=== PATIENT | female | born 1995 | race African-American/Black ===

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

== ENCOUNTER → 2017-02-06 | Outpatient (CLI) | payer MEDICAID ==
[~2017-02-06] MED LIST changes: +AMOX500C PO; +AZIT500T2 PO; +IBUP800T23 PO; -MMW SWISH-SWAL; -NAPR250T57 PO; +PERI0.126 SWISH-SPIT; +PYRI25TA2 PO; +SE-NTAB3 PO
== END ==
LOC: HPND 09:11
PROVIDERS: ATTEND Family Medicine
DX: Z34.90 Encounter for supervision of normal pregnancy, unspecified, unspecified trimester (principal)
CPT/HCPCS: 76805

== ENCOUNTER 2017-03-07 14:47 | Emergency (ER) | payer MEDICAID ==
[~2017-03-07] VITALS: Ht 160 cm; Wt 70.6 kg
[~2017-03-07 14:47] MED LIST changes: -AMOX500C PO; -AZIT500T2 PO; -IBUP800T23 PO; -PERI0.126 SWISH-SPIT
[2017-03-07 14:49] VITALS: BP 129/70; PULSE 104; RESP 20; TEMP 98.9; O2SAT 98
[2017-03-07] MEDS ORDERED: PERI0.126 SWISH-SPIT (16:24)
[2017-03-07] MEDS ORDERED: IBUP800T23 PO (16:24)
[2017-03-07] MEDS ORDERED: AMOX500C PO (16:24)
--- NOTE | 2017-03-07 16:25 | PD ---
HPI Chief Complaint: Oral / Dental Pain or Problem Time Seen by Provider: 16:23 Travel History International Travel<30 days: No Contact w/Intl Traveler<30days: No Traveled to known affect area: No History of Present Illness HPI 21-year-old female, 5 months , with complaint of bilateral lower teeth pain times one week. She said her fillings fell out a long time ago and she started having pain a week ago. Denies fevers. Reports vomiting every morning secondary to . Is complaining of lower abdominal pain that she describes as sharp and shooting pain. Denies vaginal bleeding, leakage, discharge. Geriatrics Physician is Dr. Cabrales. Says she took Tylenol and ibuprofen for symptom management. Symptoms are moderate in severity. No known relieving factors. Allergies Tatarian pineapple. Has no other medical complaints. No other modifying factors or associated signs and symptoms. PFSH Past Medical History Developmental Delay: No Diminished Hearing: No Immunizations Current: Yes ?: LMP: 10/01/16 Social History Alcohol Use: No Tobacco Use: No Substance Use: No Allergies-Medications (Allergen,Severity, Reaction): Coded Allergies: castillo (Unverified Allergy, Severe, ORAL SWELLING, 01/06/17) pineapple (Unverified Allergy, Severe, 01/06/17) Reported Meds & Prescriptions Reported Meds & Active Scripts Active Peridex Liq (Chlorhexidine Gluconate (Mouth) Liq) 0.12% Soln 15 Ml SWISH-SPIT BID 10 Days Amoxicillin 500 Mg Cap 500 Mg PO BID 10 Days Se- 19 29-1 mg ( Vit W/ Docusate-Fe Fu) 1 Tab Tab 1 Tab PO DAILY Review of Systems Except as stated in HPI: all other systems reviewed are Neg Physical Exam Narrative GENERAL: Well-nourished, well-developed black female patient, in no acute distress; afebrile, nontoxic-appearing SKIN: Warm and dry. HEAD: Atraumatic. Normocephalic. No facial edema, erythema, tenderness on palpation. No lymphadenopathy. EYES: Pupils equal and round. No scleral icterus. No injection or drainage. ENT: Mucosa pink and moist. Airway patent. MOUTH: Mucous membranes moist, no lesions, tongue and gums appear normal. Tooth #30, 31, 18 with tenderness on palpation; dental caries noted. Surrounding gingiva is without erythema, edema, drainage. No obvious abscess noted. NECK: Trachea midline. No lymphadenopathy. CARDIOVASCULAR: Regular rate. RESPIRATORY: No accessory muscle use. GASTROINTESTINAL: . MUSCULOSKELETAL: No obvious deformities. No clubbing. No cyanosis. No edema. NEUROLOGICAL: Awake and alert. Oriented 3. No obvious cranial nerve deficits. Motor grossly within normal limits. Normal speech. PSYCHIATRIC: Appropriate mood and affect; insight and judgment normal. Data Data Last Documented VS Vital Signs Date Time Temp Pulse Resp B/P (MAP) Pulse Ox O2 Delivery O2 Flow Rate FiO2 03/07/17 14:49 98.9 104 20 129/70 (89) 98 Orders Orders Ed Discharge Order (03/07/17 16:30) Acetaminophen (Tylenol) (03/07/17 16:45) Oxycodone-Acetamin 5-325 Mg (Percocet (03/07/17 18:00) MDM Medical Decision Making Medical Screen Exam Complete: Yes Emergency Medical Condition: Yes Medical Record Reviewed: Yes Differential Diagnosis Dentalgia, dental abscess, gingivitis, infected dental caries Narrative Course This is a 21-year-old female with dentalgia. No facial edema or erythema. Patient is afebrile and nontoxic-appearing. The patient is approximately 5 months and is complaining of lower abdominal pains and describes them as sharp and shooting. She denies vaginal bleeding, discharge, leakage. The patient was medically cleared and was given prescriptions for amoxicillin and Peridex mouth rinse. She was given an emergency dental information sheet. Instructed patient to follow up with dentist. Patient given Tylenol prior to discharge. Instructed patient to take Tylenol as directed and as needed for pain. The patient was discharged and taken to labor and delivery ER on the second floor of the [facility] for evaluation of abdominal pain. Diagnosis Primary Impression: Dentalgia Referrals: Dentist Primary Care Physician Patient Instructions: Dental Abscess (ED), Dental Caries (ED), General Instructions, Toothache (ED) Additional Instructions: Complete full course of antibiotics Ibuprofen or Tylenol as directed and as needed to reduce pain and inflammation Use Peridex as directed for oral hygiene Warm or cool compresses to the affected area Follow-up with dentist Follow-up with primary care provider Return to emergency department immediately with worsening of symptoms Med/Other Pt SpecificInfo: Prescription(s) given Scripts Chlorhexidine Gluconate (Mouth) Liq (Peridex Liq) 0.12% Soln 15 ML SWISH-SPIT BID for 10 Days, #300 ML 0 Refills Prov: Татьяна Moss 03/07/17 Amoxicillin (Amoxicillin) 500 Mg Cap 500 MG PO BID for Infection for 10 Days, #20 CAP 0 Refills Prov: Татьяна Moss 03/07/17 Disposition: 01 DISCHARGE HOME Condition: Stable Татьяна Moss Mar 07, 2017 16:25
[2017-03-07] MEDS ORDERED: ACETAMINOPHEN 325 MG TAB PO ONE (16:45)
[2017-03-07] MEDS ORDERED: oxyCODONE/ACETAMINOPHEN 5 MG/325 MG TAB PO ONE (18:00)
--- NOTE | 2017-03-07 18:08 | PD ---
HPI Chief Complaint 18 weeks and 2 days ; Low abdominal pain Travel History International Travel<30 Days: No Contact w/Intl Traveler<30Days: No Known Affected Area: No History of Present Illness HPI Pt is a 21 yo at 18 weeks and 2 days who presents with c/o low abdominal pain. Pt has EDC 07-09-2017, and receives care with [facility]. Pt was seen in the ER here with her c/o dental pain. Pt diagnosed with dental abscess and was being sent home on PO Tyelnol and Amoxicillin. Pt said she strained while using the bathroom prior to leaving, and noted sudden onset bilateral groin pain. Active movements, no vaginal bleeding or discharge. Weeks Gestation: 18 Para: 0 : 1 History Past Medical History Narrative Medical Dental abscess Obstetric History Obstetric History Primigravida Past Surgical History Surgical History: No Previous Surgery Family History Family History: Negative Social History Alcohol Use: No Tobacco Use: No Substance Abuse: No Allergies-Medications (Allergen,Severity, Reaction): Coded Allergies: castillo (Unverified Allergy, Severe, ORAL SWELLING, 01/06/17) pineapple (Unverified Allergy, Severe, 01/06/17) Home Meds Active Scripts Chlorhexidine Gluconate (Mouth) Liq (Peridex Liq) 0.12% Soln, 15 ML SWISH-SPIT BID for 10 Days, #300 ML 0 Refills Prov:Татьяна Moss MARKER DELIVERY 03/07/17 Amoxicillin (Amoxicillin) 500 Mg Cap, 500 MG PO BID for Infection for 10 Days, # 20 CAP 0 Refills Prov:Татьяна Moss MARKER DELIVERY 03/07/17 Vit W/ Docusate-Fe Fu (Se-Teresa 19 29-1 mg) 1 Tab Tab, 1 TAB PO DAILY for Nutritional Supplement, #30 TAB 10 Refills Prov:Adrian Cabrales MD R3 01/05/17 Discontinued Scripts Pyridoxine (Pyridoxine) 25 Mg Tab, 25 MG PO Q8HR for Nutritional Supplement, # 90 TAB 0 Refills Prov:Adrian Cabrales MD R3 01/05/17 Review of Systems Except as stated in HPI: all other systems reviewed are Neg Physical Exam Vital Signs Date Time Temp Pulse Resp B/P (MAP) Pulse Ox O2 Delivery O2 Flow Rate FiO2 03/07/17 14:49 98.9 104 20 129/70 (78) 98 Narrative GENERAL: Well-nourished, well-developed patient. SKIN: Warm and dry. HEAD: Normocephalic and atraumatic. EYES: No scleral icterus. No injection or drainage. ENT: No nasal drainage noted. Mucous membranes pink. Airway patent. NECK: Supple, trachea midline. No JVD. CARDIOVASCULAR: Regular rate and rhythm without murmurs, gallops, or rubs. RESPIRATORY: Breath sounds equal bilaterally. No accessory muscle use. BREASTS: Bilateral exam showed no masses , no retractions, no nipple discharge. ABDOMEN/GI: Abdomen soft, non-tender, bowel sounds present, no rebound, no guarding SOFT, tender bilateral groin Gravid to [20] weeks size GENITOURINARY: External Genitalia: intact and normal in appearance Cervix: [firm] Dilatation: [closed] Effacement: [not effaced] Station: [-] Presentation: [-] Membranes: [intac] Uterine Contractions: [none] FHT's: Category: [130s] Baseline: [] Reactive: [-] Variability: [-] Decels: [-] EXTREMITIES: No cyanosis or edema. BACK: Nontender without obvious deformity. No CVA tenderness. NEUROLOGICAL: Awake and alert. Motor and sensory grossly within normal limits. Five out of 5 muscle strength in all muscle groups. Normal speech. Data Data Vital Signs Reviewed: Yes Orders Orders Ed Discharge Order (03/07/17 16:30) Acetaminophen (Tylenol) (03/07/17 16:45) MDM Plan 21 yo with sudden onset bilateral groin pain. Abdomen soft, cervix closed, FHRs in 130s. Round ligament pain. Advised alternate warm/cold compress and PO Tyelnol as needed. Will give one dose Percocet 5/325 ii PO x 1 prior to discharge. Diagnosis Diagnosis: Primary Impression: Dentalgia Additional Impressions: 19 weeks gestation of Pain of round ligament affecting , antepartum Disposition: 01 DISCHARGE HOME Condition: Fair Scripts Chlorhexidine Gluconate (Mouth) Liq (Peridex Liq) 0.12% Soln 15 ML SWISH-SPIT BID for 10 Days, #300 ML 0 Refills Prov: Татьяна Moss MARKER DELIVERY 03/07/17 Amoxicillin (Amoxicillin) 500 Mg Cap 500 MG PO BID for Infection for 10 Days, #20 CAP 0 Refills Prov: Татьяна Moss MARKER DELIVERY 03/07/17 Referrals: Dentist Primary Care Physician Patient Instructions: General Instructions, Dental Abscess (ED), Dental Caries (ED), Toothache (ED) Additional Instructions: Complete full course of antibiotics Ibuprofen or Tylenol as directed and as needed to reduce pain and inflammation Use Peridex as directed for oral hygiene Warm or cool compresses to the affected area Follow-up with dentist Follow-up with primary care provider Return to emergency department immediately with worsening of symptoms Departure Forms: Tests/Procedures Charles Griffin MD Mar 07, 2017 18:08
== END 2017-03-07 18:13 | disposition home or self-care (01) ==
LOC: NEPK 14:47 → HOBED 18:13
DX: O26.92 Pregnancy related conditions, unspecified, second trimester (principal); K04.7 Periapical abscess without sinus; Z3A.00 Weeks of gestation of pregnancy not specified
CPT/HCPCS: 99284

== ENCOUNTER 2017-03-16 06:20 | Emergency (ER) | payer MEDICAID ==
[~2017-03-16 06:20] MED LIST changes: +AMOX500C PO; +PERI0.126 SWISH-SPIT; -PYRI25TA2 PO
[2017-03-16 07:00] VITALS: PULSE 94
--- NOTE | 2017-03-16 07:17 | PD ---
HPI Travel History International Travel<30 Days: No Contact w/Intl Traveler<30Days: No Known Affected Area: No History of Present Illness HPI 21 yr old G1PO at 23/4 weeks presents by EVAC for abdominal pain. Reports that it started at 4am this morning. Describes it as constant, stabbing, diffuse abdominal pain. Worse with positional movement. Endorses urinary frequency. She denies dysuria, fever, N/V, CP, SOB, vaginal discharge, vaginal bleeding, leakage of fluid, and contractions. Last intercourse was a day ago. She has been receiving care at [facility] with Dr. Adrian Cabrales. She reports not showing up to her last couple of visits due to being out of town for a family issue. History Past Medical History Medical History: Denies Significant Hx Past Surgical History Surgical History: No Previous Surgery Family History Family History: Negative Social History Alcohol Use: No Tobacco Use: No Substance Abuse: No Allergies-Medications (Allergen,Severity, Reaction): Coded Allergies: casitllo (Unverified Allergy, Severe, ORAL SWELLING, 01/06/17) pineapple (Unverified Allergy, Severe, 01/06/17) Home Meds Active Scripts Azithromycin (Azithromycin) 500 Mg Tab, 2000 MG PO ONCE for Infection, #4 TAB 0 Refills Prov:Martina Kelsey MD R1 03/16/17 Chlorhexidine Gluconate (Mouth) Liq (Peridex Liq) 0.12% Soln, 15 ML SWISH-SPIT BID for 10 Days, #300 ML 0 Refills Prov:Татьяна Moss DIRECTOR OF UNDERGRADUATE ADMISSIONS 03/07/17 Amoxicillin (Amoxicillin) 500 Mg Cap, 500 MG PO BID for Infection for 10 Days, # 20 CAP 0 Refills Prov:Татьяна MossP 03/07/17 Vit W/ Docusate-Fe Fu (Se- 19 29-1 mg) 1 Tab Tab, 1 TAB PO DAILY for Nutritional Supplement, #30 TAB 10 Refills Prov:Adrian Cabrales MD R3 01/05/17 Review of Systems Except as stated in HPI: all other systems reviewed are Neg Physical Exam Narrative GENERAL: Well-nourished, well-developed patient. SKIN: Warm and dry. HEAD: Normocephalic and atraumatic. EYES: No scleral icterus. No injection or drainage. ENT: No nasal drainage noted. Mucous membranes pink. Airway patent. NECK: Supple, trachea midline. No JVD. CARDIOVASCULAR: Regular rate and rhythm without murmurs, gallops, or rubs. RESPIRATORY: Breath sounds equal bilaterally. No accessory muscle use. ABDOMEN/GI: Abdomen soft, diffuse tenderness, bowel sounds present, no rebound, no guarding SPECULUM EXAM: closed, normal cervix visualized, thin, mild amount of vaginal discharge FHT's: baseline 150s EXTREMITIES: No cyanosis or edema. BACK: Nontender without obvious deformity. No CVA tenderness. NEUROLOGICAL: Awake and alert. Motor and sensory grossly within normal limits. Data Data Vital Signs Reviewed: Yes Orders Orders Vital Signs (Adult) .ON ADMISSION (03/16/17 06:53) ^ Labor Status (03/16/17 06:53) ^ Hydration (03/16/17 06:53) Heart Tones (03/16/17 06:53) Gc And Chlamydia Pcr (03/16/17 07:16) MDM Narrative Course / MDM 21yr old G1PO at 23/4 weeks presents with round ligament pain and chlamydia positive -UA negative for Leukocyte esterase -GC & chlamydia PCR- positive for chlamydia, will contact patient and call in prescription for 2g Azithromycin one time dose -Tylenol and heating pad for pain -Hydrate with plenty of fluids -FHTs: 150s baseline, reassuring -F/U with CHELSEA for chlamydia and continue care with Dr. Adrian munoz s/d/w Dr. Durbin Diagnosis Diagnosis: Primary Impression: Pain of round ligament during Additional Impression: Chlamydia infection affecting Disposition: 01 DISCHARGE HOME Condition: Good Scripts Azithromycin (Azithromycin) 500 Mg Tab 2000 MG PO ONCE for Infection, #4 TAB 0 Refills Prov: Martina Kelsey MD R1 03/16/17 Patient Instructions: Abdominal Pain in (ED) Martina Kelsey MD R1 Mar 16, 2017 07:17
--- NOTE | 2017-03-16 07:17 | PD ---
HPI Travel History International Travel<30 Days: No Contact w/Intl Traveler<30Days: No Known Affected Area: No History of Present Illness HPI 21 yr old G1PO at 23/4 weeks presents by EVAC for abdominal pain. Reports that it started at 4am this morning. Describes it as constant, stabbing, diffuse abdominal pain. Worse with positional movement. Endorses urinary frequency. She denies dysuria, fever, N/V, CP, SOB, vaginal discharge, vaginal bleeding, leakage of fluid, and contractions. Last intercourse was a day ago. She has been receiving care at [facility] with Dr. Adrian Cabrales. She reports not showing up to her last couple of visits due to being out of town for a family issue. History Past Medical History Medical History: Denies Significant Hx Past Surgical History Surgical History: No Previous Surgery Family History Family History: Negative Social History Alcohol Use: No Tobacco Use: No Substance Abuse: No Allergies-Medications (Allergen,Severity, Reaction): Coded Allergies: castillo (Unverified Allergy, Severe, ORAL SWELLING, 01/06/17) pineapple (Unverified Allergy, Severe, 01/06/17) Home Meds Active Scripts Azithromycin (Azithromycin) 500 Mg Tab, 2000 MG PO ONCE for Infection, #4 TAB 0 Refills Prov:Martina Kelsey MD R1 03/16/17 Chlorhexidine Gluconate (Mouth) Liq (Peridex Liq) 0.12% Soln, 15 ML SWISH-SPIT BID for 10 Days, #300 ML 0 Refills Prov:Татьяна Moss [employer] TANK OPERATOR 03/07/17 Amoxicillin (Amoxicillin) 500 Mg Cap, 500 MG PO BID for Infection for 10 Days, # 20 CAP 0 Refills Prov:Татьяна MossP 03/07/17 Vit W/ Docusate-Fe Fu (Se- 19 29-1 mg) 1 Tab Tab, 1 TAB PO DAILY for Nutritional Supplement, #30 TAB 10 Refills Prov:Adrian Cabrales MD R3 01/05/17 Review of Systems Except as stated in HPI: all other systems reviewed are Neg Physical Exam Narrative GENERAL: Well-nourished, well-developed patient. SKIN: Warm and dry. HEAD: Normocephalic and atraumatic. EYES: No scleral icterus. No injection or drainage. ENT: No nasal drainage noted. Mucous membranes pink. Airway patent. NECK: Supple, trachea midline. No JVD. CARDIOVASCULAR: Regular rate and rhythm without murmurs, gallops, or rubs. RESPIRATORY: Breath sounds equal bilaterally. No accessory muscle use. ABDOMEN/GI: Abdomen soft, diffuse tenderness, bowel sounds present, no rebound, no guarding SPECULUM EXAM: closed, normal cervix visualized, thin, mild amount of vaginal discharge FHT's: baseline 150s EXTREMITIES: No cyanosis or edema. BACK: Nontender without obvious deformity. No CVA tenderness. NEUROLOGICAL: Awake and alert. Motor and sensory grossly within normal limits. Data Data Vital Signs Reviewed: Yes Orders Orders Vital Signs (Adult) .ON ADMISSION (03/16/17 06:53) ^ Labor Status (03/16/17 06:53) ^ Hydration (03/16/17 06:53) Heart Tones (03/16/17 06:53) Gc And Chlamydia Pcr (03/16/17 07:16) MDM Narrative Course / MDM 21yr old G1PO at 23/4 weeks presents with round ligament pain and chlamydia positive -UA negative for Leukocyte esterase -GC & chlamydia PCR- positive for chlamydia, will contact patient and call in prescription for 2g Azithromycin one time dose -Tylenol and heating pad for pain -Hydrate with plenty of fluids -FHTs: 150s baseline, reassuring -F/U with CHELSEA for chlamydia and continue care with Dr. Adrian munoz s/d/w Dr. Durbin Diagnosis Diagnosis: Primary Impression: Pain of round ligament during Additional Impression: Chlamydia infection affecting Disposition: 01 DISCHARGE HOME Condition: Good Scripts Azithromycin (Azithromycin) 500 Mg Tab 2000 MG PO ONCE for Infection, #4 TAB 0 Refills Prov: Martina Kelsey MD R1 03/16/17 Patient Instructions: Abdominal Pain in (ED) Martina Kelsey MD R1 Mar 16, 2017 07:17
[2017-03-16] MEDS ORDERED: AZIT500T2 PO (10:40)
--- NOTE | 2017-03-17 12:14 | HHI.PR ---
Addendum to Inpatient Note Addendum Reason: Additional Documentation Additional Information Made multiple attempts with the number provided to contact patient about positive result for Chlamydia and treatment. Could not get in contact with the patient. She does not currently have a cell phone and is using a friend's number. I talked to the family friend and told her that "a prescription is waiting for her at her preferred pharmacy." Friend agreed to get the message to her. Martina Kelsey MD R1 Mar 17, 2017 12:14
[2017-03-30] MEDS ORDERED: INFL1INJ56 IM (16:50)
== END 2017-03-16 09:12 | disposition home or self-care (01) ==
LOC: HOBED 06:20
DX: O98.312 Other infections with a predominantly sexual mode of transmission complicating pregnancy, second trimester (principal); A56.8 Sexually transmitted chlamydial infection of other sites; Z3A.23 23 weeks gestation of pregnancy
CPT/HCPCS: 87491; 87591; 99283

== ENCOUNTER 2017-07-04 13:21 | Inpatient (IN) | payer MEDICAID ==
[2017-07-04] VITALS (64 sets, daily range): BP systolic 114–144; BP diastolic 69–98; PULSE 63–111; RESP 15–20; TEMP 98.1–99; O2SAT 95–100
[~2017-07-04] VITALS: Ht 160 cm; Wt 68.0 kg
[~2017-07-04 13:21] MED LIST changes: -AMOX500C PO; +FERR325T18 PO; -PERI0.126 SWISH-SPIT
--- NOTE | 2017-07-04 14:29 | PD ---
HPI Date Seen: Jul 04, 2017 Time Seen: 13:45 Travel History International Travel<30 Days: No Contact w/Intl Traveler<30Days: No Known Affected Area: No History of Present Illness HPI Patient is a 21-year-old G1 presenting to the ED at 39/3 weeks gestation with an LUANNE of 07/08 based on second trimester ultrasound due to abdominal pain. She reports that she began to experience abdominal pain at 7 PM yesterday. The pain was intermittent. She reports that this morning abdominal pain woke her up and has been constant. Pain is located in her lower back and all over her abdomen. She endorses movement as well as leakage of fluid. She denies any recent vaginal bleeding. Weeks Gestation: 39 Para: 0 : 1 Miscarriage: 0 : 0 History Past Medical History Medical History: Denies Significant Hx Obstetric History Obstetric History G1, pt tested positive for chlamydia, test of cure ordered on 05/20 not completed. Past Surgical History Surgical History: No Previous Surgery Family History Family History: Negative Social History Alcohol Use: No Tobacco Use: No Substance Abuse: Yes Allergies-Medications (Allergen,Severity, Reaction): Coded Allergies: castillo (Unverified Allergy, Severe, ORAL SWELLING, 03/30/17) pineapple (Unverified Allergy, Severe, 03/30/17) Home Meds Active Scripts Ferrous Sulfate (Ferrous Sulfate) 325 Mg (65 Mg Iron) Tablet, 325 MG PO TIDPC for Nutritional Supplement, #90 TAB 5 Refills Prov:Adrian Cabrales MD R3 05/20/17 Vit W/ Docusate-Fe Fu (Se-Teresa 19 29-1 mg) 1 Tab Tab, 1 TAB PO DAILY for Nutritional Supplement, #30 TAB 10 Refills Prov:Adrian Cabrales MD R3 01/05/17 Review of Systems Eyes: No: Visual changes HENT: No: Headaches Cardiovascular: Edema (of bilateral feet), No: Chest Pain or Discomfort Respiratory: No: Short of Breath Gastrointestinal: Abdominal Pain Physical Exam Narrative GENERAL: Well-nourished, well-developed patient. SKIN: Warm and dry. HEAD: Normocephalic and atraumatic. EYES: No scleral icterus. No injection or drainage. ENT: No nasal drainage noted. Mucous membranes pink. Airway patent. NECK: Supple, trachea midline. No JVD. CARDIOVASCULAR: Regular rate and rhythm without murmurs, gallops, or rubs. RESPIRATORY: Breath sounds equal bilaterally. No accessory muscle use. ABDOMEN/GI: Abdomen soft, non-tender, bowel sounds present, no rebound, no guarding Gravid to 39 weeks size GENITOURINARY: External Genitalia: intact and normal in appearance Cervix: soft Dilatation: 3cm Effacement: 60% Station: -1 Presentation: Vertex Membranes: Intact Uterine Contractions: Irregular, Q1-3 minutes FHT's: Category: 1 Baseline: 150 Reactive: + Variability: moderate Decels: Absent EXTREMITIES: No cyanosis or edema. BACK: Nontender without obvious deformity. No CVA tenderness. NEUROLOGICAL: Awake and alert. Motor and sensory grossly within normal limits. Five out of 5 muscle strength in all muscle groups. Normal speech. [facility] Medical Record Reviewed: Yes Interpretation(s) Patient is a 21-year-old G1 presenting to the ED at 39/3 weeks gestation with an LUANNE of 07/08 based on second trimester ultrasound due to abdominal pain, tere every 1-3 minutes. 1) IUP Category 1 tracing, reassuring Cervix dilated to 3cm on initial exam, bulging bag noted on repeat exam Pt to be admitted for expectant management Anticipate 2) Lack of regular OB follow up Will check GBS, pending 3) Chlamydia during , CHELSEA not completed Will test for GC and Chlamydia 4) Abnormal US Multiple echogenic foci noted on prior US, no other indications of chromosomal abnormalities noted GAILW Adrian Santillan MD R3 Jul 04, 2017 14:29
[2017-07-04] MEDS ORDERED: LACTATED RINGER'S 1000 ML INJ 1,000 ML IV PRN (14:50)
[2017-07-04] MEDS ORDERED: LIDOCAINE HCL 1% 50 ML VIAL INFIL PRN (15:00)
[2017-07-04] MEDS ORDERED: LIDOCAINE HCL 1% 50 ML VIAL I-DERMAL PRN (15:00)
[2017-07-04] MEDS ORDERED: ONDANSETRON HCL 4 MG/2 ML VIAL IV PUSH PRN (15:00)
[2017-07-04] MEDS ORDERED: SODIUM CHLORID 0.9% 500 ML INJ 500 ML IV PRN (15:00)
[2017-07-04] MEDS ORDERED: CITRIC ACID-SODIUM CITRATE LIQ 30 ML UDC PO SCH (15:00)
[2017-07-04] MEDS ORDERED: MINERAL OIL 10 ML VIAL TOPICAL PRN (15:00)
[2017-07-04] MEDS ORDERED: OXYTOCIN 30 UNITS-500ML PREMIX 500 ML IV ONE (15:00)
--- NOTE | 2017-07-04 15:01 | HHI.HP ---
History & Physical H&P Date Seen: Jul 04, 2017 Time Seen: 13:45 Travel History International Travel<30 Days: No Contact w/Intl Traveler<30Days: No Known Affected Area: No History of Present Illness HPI Patient is a 21-year-old G1 presenting to the ED at 39/3 weeks gestation with an LUANNE of 07/08 based on second trimester ultrasound due to abdominal pain. She reports that she began to experience abdominal pain at 7 PM yesterday. The pain was intermittent. She reports that this morning abdominal pain woke her up and has been constant. Pain is located in her lower back and all over her abdomen. She endorses movement as well as leakage of fluid. She denies any recent vaginal bleeding. Weeks Gestation: 39 Para: 0 : 1 Miscarriage: 0 : 0 History (Limited) History Past Medical History Medical History: Denies Significant Hx Obstetric History Obstetric History G1, pt tested positive for chlamydia, test of cure ordered on 05/20 not completed. Past Surgical History Surgical History: No Previous Surgery Family History Family History: Negative Social History Alcohol Use: No Tobacco Use: No Substance Abuse: Yes Allergies-Medications Allergies-Medications (Allergen,Severity, Reaction): Coded Allergies: castillo (Unverified Allergy, Severe, ORAL SWELLING, 03/30/17) pineapple (Unverified Allergy, Severe, 03/30/17) Home Meds Active Scripts Ferrous Sulfate (Ferrous Sulfate) 325 Mg (65 Mg Iron) Tablet, 325 MG PO TIDPC for Nutritional Supplement, #90 TAB 5 Refills Prov:Adrian Cabrales MD R3 05/20/17 Vit W/ Docusate-Fe Fu (Se-Teresa 19 29-1 mg) 1 Tab Tab, 1 TAB PO DAILY for Nutritional Supplement, #30 TAB 10 Refills Prov:Adrian Cabrales MD R3 01/05/17 ROS Review of Systems Eyes: No: Visual changes HENT: No: Headaches Cardiovascular: Edema (of bilateral feet), No: Chest Pain or Discomfort Respiratory: No: Short of Breath Gastrointestinal: Abdominal Pain Physical Exam Physical Exam Narrative GENERAL: Well-nourished, well-developed patient. SKIN: Warm and dry. HEAD: Normocephalic and atraumatic. EYES: No scleral icterus. No injection or drainage. ENT: No nasal drainage noted. Mucous membranes pink. Airway patent. NECK: Supple, trachea midline. No JVD. CARDIOVASCULAR: Regular rate and rhythm without murmurs, gallops, or rubs. RESPIRATORY: Breath sounds equal bilaterally. No accessory muscle use. ABDOMEN/GI: Abdomen soft, non-tender, bowel sounds present, no rebound, no guarding Gravid to 39 weeks size GENITOURINARY: External Genitalia: intact and normal in appearance Cervix: soft Dilatation: 3cm Effacement: 60% Station: -1 Presentation: Vertex Membranes: Intact Uterine Contractions: Irregular, Q1-3 minutes FHT's: Category: 1 Baseline: 150 Reactive: + Variability: moderate Decels: Absent EXTREMITIES: No cyanosis or edema. BACK: Nontender without obvious deformity. No CVA tenderness. NEUROLOGICAL: Awake and alert. Motor and sensory grossly within normal limits. Five out of 5 muscle strength in all muscle groups. Normal speech. Data Data [facility] Medical Record Reviewed: Yes Interpretation(s) Patient is a 21-year-old G1 presenting to the ED at 39/3 weeks gestation with an LUANNE of 07/08 based on second trimester ultrasound due to abdominal pain, tere every 1-3 minutes. 1) IUP Category 1 tracing, reassuring Cervix dilated to 3cm on initial exam, bulging bag noted on repeat exam Pt to be admitted for expectant management Anticipate 2) Lack of regular OB follow up Will check GBS, pending 3) Chlamydia during , CHELSEA not completed Will test for GC and Chlamydia 4) Abnormal US Multiple echogenic foci noted on prior US, no other indications of chromosomal abnormalities noted WDW Adrian Santillan MD R3 Jul 04, 2017 15:01
[2017-07-04] MEDS ORDERED: SODIUM CHLOR 0.9% 1000 ML INJ 1,000 ML IV PRN (15:10)
[2017-07-04] MEDS: LACTATED RINGER'S 1000 ML INJ 1,000 ML IV SCH ×2 (15:27→22:37)
[2017-07-04 15:48] LABS: AUTOMATED NEUTROPHIL # 6.8 TH/MM3 (1.8-7.7); BASOPHIL # 0.1 TH/MM3 (0-0.2); BASOPHIL % 0.5 % (0.0-2.0); EOSINOPHIL # 0.2 TH/MM3 (0-0.4); EOSINOPHIL % 1.9 % (0.0-4.0); HEMATOCRIT 30.2 % (35.0-46.0); HEMOGLOBIN 10.1 GM/DL (11.6-15.3); LYMPH % 17.6 % (9.0-44.0); LYMPHOCYTE # 1.7 TH/MM3 (1.0-4.8); MEAN CELL VOLUME 85.7 FL (80.0-100.0); MEAN CORPUSCULAR HEMOGLOBIN 28.8 PG (27.0-34.0); MEAN CORPUSCULAR HGB CONC 33.6 % (32.0-36.0); MEAN PLATELET VOLUME 9.4 FL (7.0-11.0); MONO % 9.2 % (0.0-8.0); MONOCYTE # 0.9 TH/MM3 (0-0.9); NEUT % 70.8 % (16.0-70.0); PLATELET COUNT 231 TH/MM3 (150-450); RED BLOOD COUNT 3.53 MIL/MM3 (4.00-5.30); RED CELL DISTRIBUTION WIDTH 14.8 % (11.6-17.2); WHITE BLOOD COUNT 9.6 TH/MM3 (4.0-11.0)
[2017-07-04 16:32] LABS: BANDS 1 % (0-6); LYMPHOCYTES 19 % (9-44); METAMYELOCYTES 2 % (0-1); MONOCYTES 6 % (0-8); NEUTROPHIL # MANUAL DIFF 6.9 TH/MM3 (1.8-7.7); POLYS (SEG NEUTROPHILS) 69 % (16-70)
[2017-07-04] MEDS ORDERED: OXYTOCIN 30 UNITS-500ML PREMIX 500 ML IV PRN (17:30)
--- NOTE | 2017-07-04 17:34 | PD.LABORPN ---
Subjective Subjective Pt resting in bed. She endorses feeling abdominal pain with contractions. She denies any acute concerns. Objective Vital Signs Vital Signs Date Time Temp Pulse Resp B/P (MAP) Pulse Ox O2 Delivery O2 Flow Rate FiO2 07/04/17 16:20 80 142/83 (102) 07/04/17 16:20 98.2 18 Objective Pelvic Exam: Cervix: midposition Dilatation: 3 Effacement:60% Station: -1 Presentation: Vertex Membranes: Bulging Uterine Contractions: Irregular, Q3-4 minutes FHT's: Category: 1 Baseline: 140 Reactive: + Variability: Moderate Decels: Absent Weeks Gestation: 39 Assessment/Plan Assessment and Plan Patient is a 21-year-old G1 presenting to the ED at 39/3 weeks gestation with an LUANNE of 2 based on second trimester ultrasound due to abdominal pain, at 1525 decel noted that lasted for 4 minutes with a dash of 65, responded to repositioning. 1) IUP Category 1 tracing, reassuring Cervix 3cm on exam, bulging bag noted on repeat exam Will start Pitocin at rate of 1-1-30 Routine expectant management Anticipate 2) Lack of regular OB follow up Will check GBS, pending 3) Chlamydia during , CHELSEA not completed GC and Chlamydia pending 4) Abnormal US Multiple echogenic foci noted on prior US, no other indications of chromosomal abnormalities noted WDW Adrian Santillan MD R3 Jul 04, 2017 17:34
[2017-07-04] MEDS ORDERED: fentaNYL 2MCG-BUPIV 0.125% INJ 100 ML ONE (19:11)
[2017-07-04] MEDS ORDERED: DO NOT ADMINISTER ANTICOAGULANTS PRN (20:45)
[2017-07-04] MEDS ORDERED: ePHEDrine/NS 25 MG/5 ML SYRINGE IV PUSH PRN (20:45)
[2017-07-04] MEDS ORDERED: NO SYSTEM NARCOTICS PRN (20:45)
[2017-07-04] MEDS: fentaNYL 2MCG-BUPIV 0.125% 100 ML EPIDURAL SCH (21:11)
--- NOTE | 2017-07-04 22:13 | PD.LABORPN ---
Subjective Subjective Pt in bed, family present at bedside. Pain is well controlled. Pitocin at rate of 3milliunits/min. Objective Vital Signs Vital Signs Date Time Temp Pulse Resp B/P (MAP) Pulse Ox O2 Delivery O2 Flow Rate FiO2 07/04/17 21:50 93 07/04/17 21:45 87 07/04/17 21:40 78 07/04/17 21:35 80 100 07/04/17 21:30 91 99 07/04/17 21:25 72 07/04/17 21:25 100 07/04/17 21:20 100 07/04/17 21:20 82 07/04/17 21:15 73 07/04/17 21:15 100 07/04/17 21:11 15 07/04/17 21:10 73 100 07/04/17 21:05 73 100 07/04/17 21:00 89 100 07/04/17 20:55 75 99 07/04/17 20:50 75 98 07/04/17 20:45 84 95 07/04/17 20:40 69 100 07/04/17 20:35 66 100 07/04/17 20:30 68 100 07/04/17 20:25 79 100 07/04/17 20:20 81 100 07/04/17 20:15 84 100 07/04/17 20:10 77 100 07/04/17 20:05 78 100 07/04/17 20:00 80 100 07/04/17 20:00 17 07/04/17 19:55 100 07/04/17 19:55 86 07/04/17 19:50 97 07/04/17 19:50 100 07/04/17 19:45 100 07/04/17 19:45 81 07/04/17 19:42 87 139/79 (99) 07/04/17 19:34 94 133/83 (100) 07/04/17 19:30 95 99 07/04/17 19:28 96 140/82 (101) 07/04/17 19:25 132/98 (109) 07/04/17 19:00 87 114/89 (97) 07/04/17 18:57 99.0 07/04/17 18:53 20 07/04/17 18:31 90 121/69 (86) 07/04/17 18:10 98.1 20 07/04/17 18:00 18 07/04/17 18:00 77 144/88 (106) 07/04/17 17:45 85 126/94 (105) 07/04/17 17:42 63 117/97 (104) 07/04/17 16:20 80 142/83 (102) 07/04/17 16:20 98.2 18 Objective Pelvic Exam: Cervix: Anterior lip Dilatation: 9-10 Effacement: 100% Station: -1 Presentation: Vertex Membranes: ruptured Uterine Contractions: Q1-3 minutes FHT's: Category: 1 Baseline: 130 Reactive: + Variability: Moderate Decels: Early Weeks Gestation: 39 Assessment/Plan Assessment and Plan Patient is a 21-year-old G1 presenting to the ED at 39/3 weeks gestation with an LUANNE of 07/08 based on second trimester ultrasound in active labor. GBS negative 1) IUP Category 1 tracing, reassuring Pain controlled with epidural Cervix 9-10cm with anterior lip, -1station Continue Pitocin at rate of 1-1-30 Routine expectant management Anticipate 2) Lack of regular OB follow up GBS negative 3) Chlamydia during , CHELSEA not completed GC and Chlamydia negative 4) Abnormal US Multiple echogenic foci noted on prior US, no other indications of chromosomal abnormalities noted WDW Adrian Santillan MD R3 Jul 04, 2017 22:13
[2017-07-05] VITALS (39 sets, daily range): BP systolic 109–147; BP diastolic 58–94; PULSE 66–115; RESP 15–20; TEMP 98–98.7; O2SAT 99–100
[2017-07-05 01:44] LABS: BILIRUBIN, URINE NEG (NEG); BLOOD, URINE NEG (NEG); GLUCOSE,URINE NEG (NEG); KETONE, URINE NEG (NEG); NITRITE,URINE NEG (NEG); SQUAMOUS EPITHELIAL CELL URINE <1 /hpf (0-5); URINE COLOR LIGHT-YELLOW (YELLW/STRAW); URINE LEUKOCYTE ESTERASE NEG (NEG)
[2017-07-05] MEDS ORDERED: METHYLERGONOVINE MALEATE 0.2 MG/ML VIAL ONE (02:36)
--- NOTE | 2017-07-05 02:51 | PD.OB.DELI ---
Weeks gestation: 39 Anesthesia: Epidural Episiotomy: None Vaginal Delivery: Normal Presentation: Occiput anterior Nuchal Cord: None Delayed cord clamping (45 sec): No (Umbilical cord was promptly cut due to concern for respiratory difficulty. ) Infant: Male Delivery date: Jul 05, 2017 Delivery time: 02:30 One Minute : 5 Five Minute : 7 Weight: 6lb 7oz Placenta: Spontaneous delivery, Intact, 3 vessel cord, Cord pH Laceration: No lacerations (minor periuriethral abrasion) Repair: Vicryl interrupted Estimated blood loss: 350ml Adrian Cabrales MD R3 Jul 05, 2017 02:51
[2017-07-05] MEDS: fentaNYL 2MCG-BUPIV 0.125% 100 ML EPIDURAL SCH (02:53)
[2017-07-05] MEDS ORDERED: ACETAMINOPHEN 325 MG TAB PO PRN (03:45)
[2017-07-05] MEDS ORDERED: ZOLPIDEM TARTRATE 5 MG TAB PO PRN (03:45)
[2017-07-05] MEDS ORDERED: OXYTOCIN 30 UNITS-500ML PREMIX 500 ML IV SCH (03:45)
[2017-07-05] MEDS ORDERED: ALUMINUM/MAGNESIUM/SIMETH 30 ML CUP PO PRN (03:45)
[2017-07-05] MEDS ORDERED: SODIUM CHLORIDE 0.9% FLUSH 10 ML FLUSH IV FLUSH PRN (03:45)
[2017-07-05] MEDS ORDERED: ONDANSETRON ODT 4 MG TAB PO PRN (03:45)
[2017-07-05] MEDS ORDERED: WITCH HAZEL 50%/GLYCERIN 12.5% 40 PAD JAR TOPICAL PRN (03:45)
[2017-07-05] MEDS ORDERED: BENZOCAINE 20% TOPICAL SPRAY 60 ML CAN TOPICAL PRN (03:45)
[2017-07-05] MEDS ORDERED: DOCUSATE SODIUM 50 MG/SENNA 8.6 MG TAB PO PRN (03:45)
[2017-07-05] MEDS: IBUPROFEN 800 MG TAB PO PRN ×2 (08:14→18:09)
[2017-07-05] MEDS ORDERED: SODIUM CHLORIDE 0.9% FLUSH 10 ML FLUSH IV FLUSH SCH (09:00)
[2017-07-05] MEDS ORDERED: DIPHTH/TETANUS/ACEL PERTUSSIS (BOOSTER) 0.5 ML VIAL/PFS IM ONE (16:00)
[2017-07-05] MEDS ORDERED: MEASLES, MUMPS, RUBELLA VACCINE 0.5 ML VIAL SQ ONE (16:00)
[2017-07-05] MEDS: oxyCODONE/ACETAMINOPHEN 5 MG/325 MG TAB PO PRN ×2 (18:10→22:08)
[2017-07-06] MEDS: IBUPROFEN 800 MG TAB PO PRN (06:02)
[2017-07-06] MEDS: oxyCODONE/ACETAMINOPHEN 5 MG/325 MG TAB PO PRN (06:03)
[2017-07-06 08:00] VITALS: BP 129/92; PULSE 65; RESP 16; TEMP 97.6
[2017-07-06] MEDS ORDERED: IBUP1TAB7 PO (08:29)
[2017-07-06] MEDS ORDERED: PERI PO (08:29)
[2017-07-06 08:37] VITALS: BP 143/74
--- NOTE | 2017-07-06 08:39 | HHI.OB ---
Subjective Post Day: 1 Remarks day #1. AFVSS overnight. Pain minimal. Decreased lochia. Denies dysuria. No breast tenderness. She is feeding the baby via bottle. Appetite good. No nausea or vomiting. Endorses flatus. Endorses bowel movement. Ambulating well. Denies calf pain, shortness of breath, or cough. Otherwise, she is doing well this morning and has no other complaints. (Jasper Mariee MD) Remarks Patient seen and evaluated with resident under direct supervision, agree with assessment and plan. (Adalberto Chang MD) Objective Vitals/I&O Vital Signs Date Time Temp Pulse Resp B/P (MAP) Pulse Ox O2 Delivery O2 Flow Rate FiO2 07/05/17 19:40 66 130/79 (96) 07/05/17 19:40 98.2 20 Objective Remarks GENERAL: Well-nourished, well-developed patient. CARDIOVASCULAR: Regular rate and rhythm without murmurs, gallops, or rubs. RESPIRATORY: Breath sounds equal bilaterally. No accessory muscle use. ABDOMEN/GI: Abdomen soft, non-tender. Fundus: Firm, non-tender at umbilicus. GENITOURINARY: Light to moderate bleeding. EXTREMITIES: No cyanosis or edema, non-tender, without signs of DVT. Medications and IVs Current Medications Medications (Trade) Dose Ordered Sig/Gabo Route Start Time Stop Time Status Last Admin Oxytocin 500 ml @ 1 mls/hr TITRATE PRN IV 07/04/17 17:30 07/04/17 18:16 (NS Flush) 2 ml BID IV FLUSH 07/05/17 09:00 (NS Flush) 2 ml UNSCH PRN IV FLUSH 07/05/17 03:45 (Tylenol) 650 mg Q4H PRN PO 07/05/17 03:45 07/05/17 08:14 (Motrin) 800 mg Q8H PRN PO 07/05/17 03:45 07/06/17 06:02 (Percocet 5-325 Mg) 1 tab Q4H PRN PO 07/05/17 03:45 07/06/17 06:03 (Americaine 20% Top Spr) 1 spray Q4H PRN TOPICAL 07/05/17 03:45 07/05/17 08:14 (Tucks Pads) 1 applic QID PRN TOPICAL 2/11/18 03:45 07/05/17 08:14 (Hilary-Colace) 2 tab Q12H PRN PO 07/05/17 03:45 07/05/17 22:09 (Ambien) 5 mg HS PRN PO 07/05/17 03:45 (Mag-Al Plus Susp Liq) 15 ml Q8H PRN PO 07/05/17 03:45 (Zofran Odt) 4 mg Q6H PRN PO 07/05/17 03:45 (Jasper Mariee MD) Assessment/Plan Assessment and Plan 21y/o who is PPD#1 s/p . -Continue routine care. -Percocet and Motrin PRN pain. -Encouraged OOB. Advised pelvic rest for 6 wks. -Will need a f/u appt. within 6 wks. -Re: ctrl, she would like oral contraceptives -D/c today wdw OB attending (Jasper Mariee MD) Jasper aMriee MD Jul 06, 2017 08:39 Adalberto Chang MD Jul 06, 2017 09:27
--- NOTE | 2017-07-06 08:40 | HHI.DCPOC ---
Discharge Care Plan Diagnosis: (1) care following vaginal delivery Report Symptoms to Your Doctor -Temperature above 100.5 degrees -Redness, of incision or excessive or foul smelling drainage -Unusual pain or calf pain -Increased vaginal bleeding -Painful or difficulty urinating -Feelings of extreme sadness or anxiety after 2 weeks Goals to Promote Your Health * To prevent worsening of your condition and complications * To maintain your health at the optimal level Directions to Meet Your Goals Take your medications as prescribed Follow your dietary instruction Follow activity as directed Ensure plenty of rest for recovery Drink fluids for hydration Keep your appointments as scheduled Take your immunizations and boosters as scheduled If your symptoms worsen call your PCP, if no PCP go to Urgent Care Center or Emergency Room Smoking is Dangerous to Your Health. Avoid second hand smoke Call the 24-hour crisis hotline for domestic abuse at Jasper Mariee MD Jul 06, 2017 08:40
== END 2017-07-06 14:36 | disposition home or self-care (01) | DRG 775 ==
LOC: HOBED 13:21 → H2EB 15:02 → H1EA 07-05 04:48
PROVIDERS: ADMIT Obstetrics & Gynecology; ATTEND Obstetrics & Gynecology
PROC: 10E0XZZ Delivery of Products of Conception, External Approach (ICD-10-PCS; principal; 2017-07-05)
PROC: 0HQ9XZZ Repair Perineum Skin, External Approach (ICD-10-PCS; 2017-07-05)
DX: O71.82 Other specified trauma to perineum and vulva (principal); Z37.0 Single live birth; Z3A.39 39 weeks gestation of pregnancy
CPT/HCPCS: 59025; 80307; 81001; 82805; 84112; 85007; 85027; 86850; 86900; 86901; 87081; 87150; 87491; 87591; J2210; J2405; J2590; J3010; J7120